=== PATIENT | male | born 1960 | race American Indian/Alaskan Native ===

== ENCOUNTER 2016-11-03 00:14 | Emergency (ER) | payer OTHER, SELFPAY ==
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
[2016-11-03 08:02] VITALS: BP 118/76
== END 2016-11-03 07:38 | disposition home or self-care (01) ==
LOC: ED 00:14
DX: S16.1XXA Strain of muscle, fascia and tendon at neck level, initial encounter (principal); S39.012A Strain of muscle, fascia and tendon of lower back, initial encounter; I10 Essential (primary) hypertension; Z87.891 Personal history of nicotine dependence; V49.60XA Unspecified car occupant injured in collision with unspecified motor vehicles in traffic accident, initial encounter; Y93.89 Activity, other specified; Y99.8 Other external cause status; Y92.89 Other specified places as the place of occurrence of the external cause
CPT/HCPCS: 99282

== ENCOUNTER 2017-04-23 19:44 | Emergency (ER) | payer SELFPAY ==
[2017-04-23 20:41] LABS: Anion Gap 15 mmol/L; Blood Urea Nitrogen 17 mg/dL (9-20); Calcium 8.9 mg/dL (8.4-10.2); Carbon Dioxide 28 mmol/L (22-30); Chloride 99.7 mmol/L (98-107); Glucose 80 mg/dL (75-100); Sodium 139 mmol/L (137-145)
[2017-04-23 20:42] LABS: Basophils % (Auto) 1.4 % (0.0-1.8); Eosinophils % (Auto) 2.4 % (0.0-4.3); Hematocrit 41.5 % (35.5-45.6); Mean Corpuscular HGB Conc 34 % (32-34); Mean Corpuscular Hemoglobin 33 pg (28-32); Mean Corpuscular Volume 98 fl (84-94); Platelet Count 177 K/mm3 (140-440); Red Blood Count 4.24 M/mm3 (3.65-5.03); Red Cell Distribution Width 12.2 % (13.2-15.2); White Blood Count 8.5 K/mm3 (4.5-11.0)
--- NOTE | 2017-04-24 03:49 | Emergency Department Report ---
HPI - General Chief Complaint: Syncope Time Seen by Provider: 04/24/17 03:39 - HPI HPI: This is a 56 year-old male who presents to the emergency department from home to get checked out after he had a syncopal episode yesterday, Sunday. He says that he did not eat anything that morning, was out in the sun "for a while" and then passed out about 1 PM for a short time. He denies hitting his head or any trauma. He says after he passed out he was slightly dizzy but then was able to get up and move around without any difficulty. All of his symptoms resolved without any intervention. Patient currently is asymptomatic. He denies any episodes of chest pain, vision change , slurred speech or any other neurological deficits. He called his paleobotanist to let them know that he passed out and spoke to a nurse who told him that he should go to a emergency department for evaluation. He has a past medical history of hyperlipidemia, coronary artery disease with 2 stents. Both his paleobotanist and primary care physicians are through [facility]. ED Past Medical Hx - Past Medical History Hx Hypertension: Yes Additional medical history: hyperlipidemia, CAD - Surgical History Hx Coronary Stent: Yes (x2, 08/2016) - Social History Smoking Status: Never Smoker Substance Use Type: None - Medications Home Medications: Home Medications Medication Instructions Recorded Confirmed Last Taken Type Aspirin EC [Aspirin Enteric Coated 81 mg PO DAILY 11/24/16 11/24/16 11/02/16 History TAB] AtorvaSTATin 40 mg PO QHS 11/24/16 11/24/16 11/02/16 History Carvedilol 3.125 mg PO BID 11/24/16 11/24/16 11/02/16 History Lisinopril 10 mg PO DAILY 11/24/16 11/24/16 11/02/16 History Plavix 75 mg PO DAILY 11/24/16 11/24/16 11/02/16 History ED Review of Systems ROS: Stated complaint: SYNCOPE Other details as noted in HPI Comment: All other systems reviewed and negative Constitutional: denies: chills, fever Eyes: denies: eye pain, eye discharge, vision change ENT: denies: ear pain, throat pain Respiratory: denies: cough, shortness of breath, wheezing Cardiovascular: syncope. denies: chest pain Gastrointestinal: denies: abdominal pain, nausea, diarrhea Genitourinary: denies: urgency, dysuria Musculoskeletal: denies: back pain, joint swelling, arthralgia Skin: denies: rash, lesions Neurological: denies: headache, numbness Physical Exam - Physical Exam Vital Signs: Vital Signs 04/23/17 04/24/17 19:49 01:22 Temperature 98.2 F 98.1 F Pulse Rate 72 66 Respiratory 18 18 Rate Blood Pressure 110/74 114/82 O2 Sat by Pulse 98 98 Oximetry Physical Exam: GENERAL: The patient is well-developed well-nourished. HENT: Normocephalic. Atraumatic. Patient has moist mucous membranes. EYES: Extraocular motions are intact. Pupils equal reactive to light bilaterally. NECK: Supple. Trachea is midline. CHEST/LUNGS: Clear to auscultation. There is no respiratory distress noted. HEART/CARDIOVASCULAR: Regular. There is no tachycardia. There is no gallop rub or murmur. ABDOMEN: Abdomen is soft, nontender. Patient has normal bowel sounds. There is no abdominal distention. SKIN: Skin is warm and dry. NEURO: The patient is awake, alert, and oriented. The patient is cooperative. The patient has no focal neurologic deficits. The patient has normal speech and gait. Cranial nerves II through XII grossly intact. No dysmetria. Pronator drift. MUSCULOSKELETAL: There is no tenderness or deformity. There is no limitation range of motion. There is no evidence of acute injury. ED Course Vital Signs 04/23/17 04/24/17 19:49 01:22 Temperature 98.2 F 98.1 F Pulse Rate 72 66 Respiratory 18 18 Rate Blood Pressure 110/74 114/82 O2 Sat by Pulse 98 98 Oximetry ED Medical Decision Making - Lab Data Result diagrams: 04/23/17 19:57 04/23/17 19:57 - EKG Data -: EKG Interpreted by [facility] EKG shows normal: sinus rhythm, axis, intervals, QRS complexes (incomplete right bundle branch block), ST-T waves Rate: normal - EKG Data When compared to previous EKG there are: previous EKG unavailable Interpretation: other (sinus rhythm, normal axis, incomplete right bundle branch block) - Medical Decision Making 56-year-old male presents to the emergency department for evaluation after having a syncopal episode about 24-36 hours prior to presentation. Patient has been asymptomatic and remains so throughout his ED course. Vital signs stable throughout his ED course. Labs are unremarkable including negative troponins 3. EKG does not show any ST elevation [place], ischemia or dysrhythmia. There are no focal, motor or sensory deficits and his cranial nerves are intact. The patient appears stable and safe for discharge home at this time. He will return to the ER with any worsening of symptoms or any acute distress. - Differential Diagnosis vasovagal, orthostatic hypotension, hypoglycemia, dysrhythmia Critical Care Time: No Critical care attestation.: If time is entered above; I have spent that time in minutes in the direct care of this critically ill patient, excluding procedure time. ED Disposition Clinical Impression: Syncope Qualifiers: Syncope type: unspecified Qualified Code(s): R55 - Syncope and collapse Disposition: DC- TO HOME OR SELFCARE Is pt being admited?: No Condition: Stable Instructions: Syncope (ED) Additional Instructions: Please follow-up with your primary care physician and your paleobotanist in the next few days. Return to the emergency department with any recurrent episodes of passing out, any chest pain or shortness of breath, or any acute distress. Referrals: PRIMARY CARE, [Primary Care Provider] - [facility] Time of Disposition: 03:49
[2017-04-24 03:56] VITALS: BP 123/75
== END 2017-04-24 04:00 | disposition home or self-care (01) ==
LOC: ED 19:44
DX: R55 Syncope and collapse (principal); I10 Essential (primary) hypertension; I25.10 Atherosclerotic heart disease of native coronary artery without angina pectoris; E78.5 Hyperlipidemia, unspecified; Z95.1 Presence of aortocoronary bypass graft; Z79.82 Long term (current) use of aspirin
CPT/HCPCS: 36415; 80048; 84484; 85025; 93005; 93010; 99284